=== PATIENT | female | born 1980 | race Hispanic/Latino ===

== ENCOUNTER → 2019-01-22 | Day surgery (SDC) | payer BC ==
[2019-01-21 15:46] LABS: BASOPHILS % 0.4 % (0.0-1.0); EOSINOPHILS # (AUTO) 0.1 (0.0-0.4); EOSINOPHILS % 0.6 % (0.0-6.0); HEMATOCRIT 37.9 % (34.2-44.1); HEMOGLOBIN 12.8 g/dL (12.0-16.0); LYMPHOCYTES # (AUTO) 3.2 (1.0-3.2); LYMPHOCYTES % 34.8 % (18.0-39.1); MEAN CORPUSCULAR HEMOGLOBIN 29.2 pg (28-32); MEAN CORPUSCULAR HGB CONC 33.8 g/dL (31-35); MEAN CORPUSCULAR VOLUME 86.5 fL (81-99); MONOCYTES # (AUTO) 0.6 (0.2-0.8); NEUTROPHILS # (AUTO) 5.4 (2.1-6.9); NEUTROPHILS % 57.9 % (38.7-80.0); PLATELET COUNT 331 x10e3/uL (140-360); RED BLOOD COUNT 4.38 x10e6/uL (3.6-5.1); RED CELL DISTRIBUTION WIDTH 13.3 % (11.7-14.4)
[2019-01-21 16:02] LABS: ANION GAP 11.8 mmol/L (8-16); BLOOD UREA NITROGEN 23 mg/dL (7-26); BUN/CREATININE RATIO 33 (6-25); CALCIUM 9.5 mg/dL (8.4-10.2); CARBON DIOXIDE 26 mmol/L (22-29); CHLORIDE 102 mmol/L (98-107); CREATININE, SERUM 0.69 mg/dL (0.57-1.11); EST GLOMERULAR FILTRATION RATE > 60 ML/MIN (60-); GLUCOSE 96 mg/dL (74-118); POTASSIUM 3.8 mmol/L (3.5-5.1); SODIUM 136 mmol/L (136-145)
[~2019-01-22] MED LIST: BUPIVACAINE 0.25% 30ML SDV INJ ONE; BUPIVACAINE 0.25%/EPI 30ML SDV INJ ONE; DEXAMETHASONE SOD PHOS INJ 4 MG/ML VIAL ONE; FENTANYL CITRATE/PF 100MCG/2 ML INJ ONE; KETOROLAC TROMETHAMINE 30 MG/ML VIAL ONE; LIDOCAINE HCL 2% LOCAL INJ 5 ML SDV VIAL INJ ONE; MIDAZOLAM HCL 2 MG/2 ML VIAL ONE; ONDANSETRON HCL INJ 2MG/ML 2ML 2 MG/ML VIAL ONE; PROPOFOL IV EMULSION 10 MG/ML 20 ML VIAL ONE; SEVOFLURANE INHAL SOLN 250 ML PEN BTL ONE
--- OUTSIDE RECORDS SUMMARY | 2019-01-22 09:02 | XMS REPORT ---
Author Author [facility] Address Unknown Phone Unavailable Care Team Providers Care Newscast Producer Name Role Phone Unavailable Unavailable Problems This patient has no known problems. Allergies, Adverse Reactions, Alerts This patient has no known allergies or adverse reactions. Medications This patient has no known medications. Results Test Description Test Time Test Comments Text Results Atomic Results Result Comments BREAST ULTRASOUND CORE BIOPSY LEFT 2018-12-09 13:35:13 - BREAST ULTRASOUND CORE BIOPSY LEFTULTRASOUND GUIDED BIOPSY LEFT BREAST WITH MARKING DEVICE INSERTED: 12/03/2018CLINICAL: Ultrasound biopsy, left breast. Comparison is made to exams dated 11/23/2018 ultrasound, 11/23/2018 mammogram - [facility]-, 04/30/2016 mammogram, 04/30/2016 ultrasound, 07/24/2015 ultrasound, and 11/09/2014 ultrasound - [facility]. An ultrasound guided biopsy using real-time ultrasound was performed for the circumscribed oval mass located in the left breast at 1 o'clock, anterior depth. This was described on the previous mammography and ultrasound reports. The skin was prepped in the usual manner. Local anesthetic was administered to the access site. The abnormality was approached from the lateral aspect. A biopsy needle was placed adjacent to the abnormality under ultrasound guidance. Once the needle was documented to be in the correct location, a specimen was obtained using an automated biopsy gun. A clip was inserted into the biopsy cavity. The specimen was sent to the laboratory for pathological analysis. IMPRESSION: ULTRASOUND GUIDED BIOPSYUltrasound guided biopsy of the mass in the left breast at 1 o'clock, anterior depth, was successful with no apparent post procedure complications. Waiting for pathology results. A final report will be issued when these become available. Addendum 12/09/2018 1:[address] Radha Ramos: Pathology results were reported by Dr. 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 Negative for atypia/malignancy. Negative for microcalcifications." Results are concordant with imaging.A surgical consultation for excision of the left breast mass at 1 o'clock due to size criteria is recommended.Annual screening mammography is also recommended for which the patient will be due in November 2019.Dany Ramos D.O.ss,al/:12/09/2018 13:35:13 Entry: cp - 12/10/2018 09:35:09Imaging Technologist: Astrid PARSONS, [facility]-letter sent: Surgical Consult Recommended DIAG MAMM LEFT CAD DIGITAL 2018-12-03 12:16:41 - DIAG MAMM LEFT CAD DIGITALUNILATERAL LEFT DIGITAL DIAGNOSTIC MAMMOGRAM WITH CAD POST-PROCEDURE IMAGING FOR MARKER PLACEMENT: 12/03/2018CLINICAL: Post clip placement. Current mammographic images were evaluated by either a [employer] M-Vu or a [employer] ImageAgencyport Softwarecker CAD (computer aided detection system). Comparison is made to exam [facility] The tissue of the left breast is scattered fibroglandular. Post-procedure mammogram demonstrates biopsy marker clip within the biopsied left breast mass at 1 o'clock.IMPRESSION: POST PROCEDURE IMAGING FOR MARKER PLACEMENTSuccessful biopsy marker placement within the biopsied left breast mass.Dany Jeffers M.D. ss/:12/03/2018 12:16:41 Compressor Operator Adjuster: Kaye PARSONS, [facility]-Mammogram BI-RADS: Post-procedure mammogram for marker placement DIAG MAMM BILATERAL CAD DIGITAL 2018-11-23 14:52:33 - DIAG MAMM BILATERAL CAD DIGITALBILATERAL DIGITAL DIAGNOSTIC MAMMOGRAM WITH CAD: 11/23/2018CLINICAL: Palpable mass, left breast. Current mammographic images were evaluated by either a [employer] M-Vu or a [employer]ency[employer] Softwarecker CAD (computer aided detection system). Comparison is made to exams dated 04/30/2016 mammogram, 11/09/2014 mammogram, and 10/12/2014 mammogram - [facility]. The tissue of both breasts is extremely dense, which lowers the sensitivity of mammography. There are nodular densities bilaterally that most likely represent benign fibroadenomas, cysts, or nodular breast tissue, however this must be confirmed with ultrasound. No suspicious mass, architectural distortion, malignant type calcification, or lymph node abnormality detected. INCOMPLETE ASSESSMENT: ADDITIONAL IMAGING EVALUATION RECOMMENDEDUltrasound pending for additional evaluation. - BREAST ULTRASOUND BILATERALULTRASOUND OF BOTH BREASTS AND BOTH AXILLA: 11/23/2018Comparison is made to exams dated 04/30/2016 mammogram, 11/09/2014 mammogram, and 10/12/2014 mammogram - [facility]. Real- time ultrasound of both breasts and both axilla was performed. There is a benign 1.2 cm oval mass in the right breast at 12 o'clock, 3 cm from the nipple. Color flow imaging demonstrates that there is no increase in vascularity. There is a 3.5 cm mass in the left breast at 1 o'clock, 3 cm from the nipple, t hat has increased in size. Color flow imaging demonstrates that there is increased vascularity. There also is a benign 1.9 cm oval mass in the left breast at 7 o'clock, 3 cm from the nipple. Color flow imaging demonstrates that there is no increase in vascularity. No abnormalities were seen sonographically in either axilla. IMPRESSION: SUSPICIOUS OF MALIGNANCY - FOLLOW-UP RECOMMENDEDThe 3.5 cm mass in the left breast at 1 o'clock has increased in size. An ultrasound guided biopsy and surgical excision is recommended. Results were discussed with the patient.Carmen Sandra M.D. dm/: 019 14:52:33 Entry: - 11/25/2018 09:26:53Imaging Technologist: Elsa Meza , [facility]-FWletter sent: BIRADS 4/5 Biopsy Mammogram BI-RADS: 0 Indeterminate Ultrasound BI-RADS: 4a Suspicious abnormality - low suspicion for malignancy BREAST ULTRASOUND BILATERAL 2018-11-23 14:52:33 - DIAG MAMM BILATERAL CAD DIGITALBILATERAL DIGITAL DIAGNOSTIC MAMMOGRAM WITH CAD: 11/23/2018CLINICAL: Palpable mass, left breast. Current mammographic images were evaluated by either a [employer] M-Vu or a [employer] Image[employer]er CAD (computer aided detection system). Comparison is made to exams dated 04/30/2016 mammogram, 11/09/2014 mammogram, and 10/12/2014 mammogram - [facility]. The tissue of both breasts is extremely dense, which lowers the sensitivity of mammography. There are nodular densities bilaterally that most likely represent benign fibroadenomas, cysts, or nodular breast tissue, however this must be confirmed with ultrasound. No suspicious mass, architectural distortion, malignant type calcification, or lymph node abnormality detected. INCOMPLETE ASSESSMENT: ADDITIONAL IMAGING EVALUATION RECOMMENDEDUltrasound pending for additional evaluation. - BREAST ULTRASOUND BILATERALULTRASOUND OF BOTH BREASTS AND BOTH AXILLA: 11/23/2018Comparison is made to exams dated 04/30/2016 mammogram, 11/09/2014 mammogram, and 10/12/2014 mammogram - [facility]. Real- time ultrasound of both breasts and both axilla was performed. There is a benign 1.2 cm oval mass in the right breast at 12 o'clock, 3 cm from the nipple. Color flow imaging demonstrates that there is no increase in vascularity. There is a 3.5 cm mass in the left breast at 1 o'clock, 3 cm from the nipple, t hat has increased in size. Color flow imaging demonstrates that there is increased vascularity. There also is a benign 1.9 cm oval mass in the left breast at 7 o'clock, 3 cm from the nipple. Color flow imaging demonstrates that there is no increase in vascularity. No abnormalities were seen sonographically in either axilla.
[2019-01-22 14:00] VITALS: BP 120/81
--- NOTE | 2019-01-22 19:06 | Operative Report ---
DATE OF PROCEDURE: 01/22/2019 SURGEON: Fran Gage MD PREOPERATIVE DIAGNOSIS: Left breast mass. POSTOPERATIVE DIAGNOSIS: Left breast mass. OPERATION PERFORMED: Left partial mastectomy. ANESTHESIA: General. COMPLICATIONS: None. ESTIMATED BLOOD LOSS: Minimal. PROCEDURE IN DETAIL: With the patient lying in bed in the supine position under good general anesthesia, the left breast was prepped with Betadine solution and draped in the usual manner. The area overlying the mass at the 3 o'clock position of the left breast, it was then infiltrated with 0.25% Marcaine with epinephrine. An incision was made, carried down through the subcutaneous tissue and through the breast tissue and a well-encapsulated multilobular mass was then encountered, which was and slowly and carefully from all the surrounding breast tissue and totally and completely removed and sent for pathological examination. The whole area was then thoroughly irrigated. Perfect hemostasis was ascertained. The breast tissue was then reapproximated with interrupted sutures of 2-0 chromic and the skin was closed with subcuticular 5-0 Vicryl. Benzoin, Steri-Strips, and dressings were applied. The sponge, lap, and needle count was correct. The patient tolerated the procedure well and returned to the recovery room in stable condition. MD PANTERA SánchezR/MODL /[id number]
== END | disposition home or self-care (01) ==
LOC: OR 09:00
PROVIDERS: ATTEND Surgery
DX: D24.2 Benign neoplasm of left breast (principal); Z01.810 Encounter for preprocedural cardiovascular examination; Z01.812 Encounter for preprocedural laboratory examination
CPT/HCPCS: 19301; 36415; 80048; 81025; 85025; 88305; 93005; J1100; J1885; J2001; J2250; J2405; J2704